=== PATIENT | female | born 1930 | race Hispanic/Latino ===

== ENCOUNTER 2017-07-05 22:19 | Observation (INO) | payer MEDICARE ==
[~2017-07-05] VITALS: Ht 149.9 cm; Wt 62.2 kg
[~2017-07-05 22:19] MED LIST: AMLO2.5T PO; ATOR10TA69 PO; CARV25TA PO; FURO20TA4 PO; HUM10VIA SQ; HUM10VIA6 SQ; IRON-6 PO; NITR100C PO; ONDA4TAB9 PO; VALS320T15 PO; WARF5TAB76 PO
[2017-07-05 22:44] LABS: EOSINOPHILS % (AUTO) 2.3 % (0.0-8.0); HEMATOCRIT 33.7 % (36-48); LYMPHOCYTES % (AUTO) 22.5 % (21.0-51.0); MEAN CORPUSCULAR HEMOGLOBIN 29.5 pg (27.0-33.0); MEAN CORPUSCULAR HGB CONC 34.7 g/dL (32.0-36.0); MONOCYTES % (AUTO) 7.3 % (3.0-13.0); NEUTROPHILS % (AUTO) 66.9 % (40.0-77.0); NUCLEATED RED BLOOD CELLS 0.1 % (0.0-0.19); PLATELET COUNT (AUTO) 160 K/uL (130-400); RED BLOOD CELL COUNT(AUTO) 3.96 MIL/uL (4.00-5.50); RED CELL DISTRIBUTION WIDTH 17.1 % (11.0-15.5); WHITE BLOOD COUNT (AUTO) 7.1 K/uL (4.8-10.8)
[2017-07-05 22:59] LABS: CREATININE 1.1 mg/dL (0.5-1.5); INR 2.08 (0.85-1.15); PARTIAL THROMBOPLASTIN TIME 33.7 SEC (26.3-35.5); POTASSIUM 5.4 mmol/L (3.5-5.1); PROTHROMBIN TIME 21.5 SEC (9.6-11.6)
[2017-07-05 23:14] LABS: APPEARANCE,URINE Cloudy (CLEAR); BILIRUBIN,URINE Negative (NEGATIVE); COLOR,URINE Yellow (YELLOW); GLUCOSE, URINE (UA) Negative (NEGATIVE); KETONES,URINE Negative (NEGATIVE); LEUKOCYTE ESTERASE ,URINE Small (NEGATIVE); NITRATE,URINE Negative (NEGATIVE); OCCULT BLOOD,URINE Negative (NEGATIVE); PROTEIN,URINE Negative (NEGATIVE)
[2017-07-05 23:21] LABS: ALBUMIN 3.7 g/dL (3.5-5.0); BILIRUBIN,TOTAL 0.4 mg/dL (0.2-1.0); CREATINE KINASE MB 1.5 ng/mL (0.5-3.6); TOTAL PROTEIN, SERUM 7.1 g/dL (6.0-8.3)
[2017-07-05 23:23] LABS: AMORPHOUS SEDIMENT,UR Rare /LPF (None Seen); BACTERIA,URINE Moderate /HPF (None Seen); MUCUS,URINE Few LPF (None Seen); RBC,URINE None Seen /HPF (0-1); SQUAMOUS EPITHELIAL CELL,UR Few /HPF (0-2)
[2017-07-05] MEDS ORDERED: NITROGLYCERIN 1GM/1 INCH PACKET TD ONE (23:38)
[2017-07-05] MEDS ORDERED: FUROSEMIDE 10 MG/ML 4ML VIAL ONE (23:38)
[2017-07-06] VITALS (7 sets, daily range): BP systolic 133–178; BP diastolic 48–67
[2017-07-06] MEDS ORDERED: LEVOFLOXACIN 500 MG/D5W 100 ML 100 ML ONE (00:17)
[2017-07-06] MEDS ORDERED: LIDOCAINE HCL-MPF 1% 2ML VIAL IJ PRN (02:15)
[2017-07-06] MEDS ORDERED: POTASSIUM CHLORIDE 10% ELIXIR 20 MEQ/15 ML UDCUP PO PRN (02:15)
[2017-07-06] MEDS ORDERED: POTASSIUM CHLORIDE 20MEQ/100ML 100 ML IV PRN (02:15)
[2017-07-06] MEDS ORDERED: POTASSIUM CHLORIDE 20 MEQ ERTAB PO PRN (02:15)
[2017-07-06] MEDS ORDERED: CIPR-279 PO (03:47)
[2017-07-06] MEDS ORDERED: VALS320T15 PO (04:03)
[2017-07-06] MEDS ORDERED: SERT50TA12 PO (04:03)
[2017-07-06] MEDS ORDERED: OMEP40CA37 PO (04:03)
[2017-07-06] MEDS ORDERED: WARF2.5T85 PO (04:03)
[2017-07-06] MEDS ORDERED: POTA10TA14 PO (04:03)
[2017-07-06] MEDS ORDERED: ERGO500014 PO (04:03)
[2017-07-06] MEDS ORDERED: WARF-57 PO (04:03)
[2017-07-06 05:39] LABS: CREATINE KINASE, TOTAL 61 U/L (21-232); MYOGLOBIN 72 ng/mL (10-92); TROPONIN I < 0.04 ng/mL (0.00-0.06)
[2017-07-06] MEDS: NITROGLYCERIN 1GM/1 INCH PACKET TD SCH ×3 (06:19→22:42)
[2017-07-06] MEDS ORDERED: ENOXAPARIN SODIUM 30 MG/0.3 ML SQ SCH (09:00)
[2017-07-06] MEDS ORDERED: HYDRALAZINE HCL 20 MG/ML VIAL IV PRN (10:30)
[2017-07-06] MEDS ORDERED: AZTREONAM 1 GM in SODIUM CHLORIDE 0.9% 50 ML IV SCH (10:30)
[2017-07-06] MEDS: AZTREONAM 1 GM VIAL IVP SCH ×2 (12:03→22:42)
[2017-07-06] MEDS: FUROSEMIDE 10 MG/ML 2ML VIAL IVP SCH ×2 (12:04→21:14)
[2017-07-06] MEDS: FAMOTIDINE 20MG TAB 20 MG TAB PO SCH (12:04)
[2017-07-06] MEDS: ASPIRIN 81MG TAB.CHEW PO SCH (12:04)
[2017-07-06] MEDS ORDERED: GLUCAGON 1MG KIT 1 MG ML IM PRN (12:15)
[2017-07-06] MEDS ORDERED: DEXTROSE 50%-WATER 50 ML DISP.SYRIN IV PRN (12:15)
[2017-07-06] MEDS: INSULIN HUMULIN R 100 UNIT/ML 3ML SQ SCH ×2 (16:30→21:21)
[2017-07-06] MEDS ORDERED: WARFARIN SODIUM 5 MG TAB PO SCH (17:00)
[2017-07-06] MEDS ORDERED: ATORVASTATIN CALCIUM 10 MG TABLET PO SCH (21:00)
[2017-07-07 04:25] LABS: HEMATOCRIT 35.7 % (36-48); MEAN CORPUSCULAR HGB CONC 34.6 g/dL (32.0-36.0); MEAN CORPUSCULAR VOLUME 83.8 fL (79-99); NUCLEATED RED BLOOD CELLS 0.1 % (0.0-0.19); PLATELET COUNT (AUTO) 146 K/uL (130-400); RED BLOOD CELL COUNT(AUTO) 4.26 MIL/uL (4.00-5.50); RED CELL DISTRIBUTION WIDTH 16.7 % (11.0-15.5); WHITE BLOOD COUNT (AUTO) 6.1 K/uL (4.8-10.8)
[2017-07-07 04:44] LABS: CREATININE 1.4 mg/dL (0.5-1.5); POTASSIUM 3.4 mmol/L (3.5-5.1)
[2017-07-07 05:02] VITALS: BP 125/62
[2017-07-07] MEDS: NITROGLYCERIN 1GM/1 INCH PACKET TD SCH ×2 (06:10→14:22)
[2017-07-07] MEDS: INSULIN HUMULIN R 100 UNIT/ML 3ML SQ SCH ×2 (06:54→14:35)
[2017-07-07] MEDS ORDERED: INSULIN HUMULIN 70/30 100 UNIT/ML 3ML SQ SCH (07:30)
[2017-07-07 08:24] VITALS: BP 137/54
[2017-07-07] MEDS ORDERED: SERTRALINE HCL 50 MG TABLET PO SCH (09:00)
[2017-07-07] MEDS ORDERED: AMLODIPINE BESYLATE 2.5 MG TAB PO SCH (09:00)
[2017-07-07] MEDS ORDERED: CARVEDILOL 25 MG TABLET PO SCH (09:00)
[2017-07-07] MEDS ORDERED: FERRALET PO SCH (09:00)
[2017-07-07 11:58] VITALS: BP 139/90
[2017-07-07] MEDS: FAMOTIDINE 20MG TAB 20 MG TAB PO SCH (14:22)
[2017-07-07] MEDS: FUROSEMIDE 10 MG/ML 2ML VIAL IVP SCH (14:22)
[2017-07-07] MEDS: ASPIRIN 81MG TAB.CHEW PO SCH (14:23)
[2017-07-07] MEDS: AZTREONAM 1 GM VIAL IVP SCH (14:25)
[2017-07-07 15:51] VITALS: BP 134/54
[2017-07-08] MEDS ORDERED: LOSARTAN 100 MG TABLET PO SCH (09:00)
[2017-07-13] MEDS ORDERED: ERGOCALCIFEROL (VITAMIN D2) 50,000 UNIT CAPSULE PO SCH (09:00)
== END 2017-07-07 18:00 | disposition home or self-care (01) ==
LOC: EDH 22:19 → EDHIP 23:49 → 3CH 07-06 01:17
PROVIDERS: ADMIT Internal Medicine; ATTEND Internal Medicine
DX: I11.0 Hypertensive heart disease with heart failure (principal); I50.23 Acute on chronic systolic (congestive) heart failure; N39.0 Urinary tract infection, site not specified; I25.10 Atherosclerotic heart disease of native coronary artery without angina pectoris; I48.2 Chronic atrial fibrillation; I42.9 Cardiomyopathy, unspecified; E11.9 Type 2 diabetes mellitus without complications; E78.5 Hyperlipidemia, unspecified; Z87.440 Personal history of urinary (tract) infections; Z95.1 Presence of aortocoronary bypass graft; Z79.01 Long term (current) use of anticoagulants
CPT/HCPCS: 36415 ×3; 71045 ×2; 80048; 80053; 81001; 82550 ×2; 82553 ×2; 82948 ×6; 83874; 83880; 84484 ×2; 85025; 85027; 85610; 85730; 87088; 87186; 93005; 96372 ×2; 96374; 96375; 96376 ×2; 99291; A4218 ×3; A4510; G0378 ×42; J1815 ×2; J1940 ×4; J1956; J3490 ×4

== ENCOUNTER 2017-09-24 22:31 | Emergency (ER) | payer MEDICARE ==
[~2017-09-24 22:31] MED LIST changes: +ERGO500014 PO; -HUM10VIA6 SQ; +OMEP40CA37 PO; -ONDA4TAB9 PO; +POTA10TA14 PO; +SERT50TA12 PO; -VALS320T15 PO; +VALS320T16 PO; +WARF-57 PO; +WARF2.5T85 PO; -WARF5TAB76 PO
[2017-09-24 23:34] LABS: APPEARANCE,URINE Clear (CLEAR); BILIRUBIN,URINE Negative (NEGATIVE); COLOR,URINE Yellow (YELLOW); GLUCOSE, URINE (UA) Negative (NEGATIVE); KETONES,URINE Negative (NEGATIVE); LEUKOCYTE ESTERASE ,URINE Small (NEGATIVE); NITRATE,URINE Positive (NEGATIVE); OCCULT BLOOD,URINE Negative (NEGATIVE); PH,URINE 5.5 (5.0-8.0); PROTEIN,URINE Negative (NEGATIVE)
[2017-09-24 23:41] LABS: BACTERIA,URINE Many /HPF (None Seen); RBC,URINE None Seen /HPF (0-1); SQUAMOUS EPITHELIAL CELL,UR Rare /HPF (0-2)
[2017-09-24 23:58] LABS: BASOPHILS % (AUTO) 1.1 % (0.0-5.0); EOSINOPHILS % (AUTO) 1.7 % (0.0-8.0); HEMATOCRIT 33.3 % (36-48); LYMPHOCYTES % (AUTO) 17.7 % (21.0-51.0); MEAN CORPUSCULAR HEMOGLOBIN 28.9 pg (27.0-33.0); MEAN CORPUSCULAR HGB CONC 33.8 g/dL (32.0-36.0); MEAN CORPUSCULAR VOLUME 85.4 fL (79-99); MONOCYTES % (AUTO) 5.3 % (3.0-13.0); NEUTROPHILS % (AUTO) 74.2 % (40.0-77.0); PLATELET COUNT (AUTO) 163 K/uL (130-400); RED CELL DISTRIBUTION WIDTH 18.1 % (11.0-15.5); WHITE BLOOD COUNT (AUTO) 7.8 K/uL (4.8-10.8)
[2017-09-25 00:10] LABS: CREATININE 1.3 mg/dL (0.5-1.5); INR 1.88 (0.85-1.15); PROTHROMBIN TIME 19.5 SEC (9.6-11.6)
[2017-09-25 00:15] LABS: ALBUMIN 3.8 g/dL (3.5-5.0); BILIRUBIN,TOTAL 0.4 mg/dL (0.2-1.0); TOTAL PROTEIN, SERUM 6.7 g/dL (6.0-8.3)
[2017-09-25] MEDS ORDERED: ACETAMINOPHEN 325 MG TAB ONE (00:42)
== END 2017-09-25 00:48 | disposition home or self-care (01) ==
LOC: EDH 22:31
DX: S00.83XA Contusion of other part of head, initial encounter (principal); S00.03XA Contusion of scalp, initial encounter; I11.0 Hypertensive heart disease with heart failure; I50.9 Heart failure, unspecified; I25.810 Atherosclerosis of coronary artery bypass graft(s) without angina pectoris; E78.00 Pure hypercholesterolemia, unspecified; E11.9 Type 2 diabetes mellitus without complications; I48.91 Unspecified atrial fibrillation; Z95.1 Presence of aortocoronary bypass graft; Z88.0 Allergy status to penicillin; W18.39XA Other fall on same level, initial encounter; Y93.01 Activity, walking, marching and hiking; Y92.89 Other specified places as the place of occurrence of the external cause; Y99.8 Other external cause status
CPT/HCPCS: 36415; 70450; 71045; 72125; 80053; 81001; 82550; 84484; 85025; 85610; 85730; 93005; 94761

== ENCOUNTER → 2018-06-19 | Outpatient (CLI) | payer MEDICARE ==
[~2018-06-19] MED LIST changes: -AMLO2.5T PO; +AMLO2.5T4 PO
== END | disposition home or self-care (01) ==
LOC: SHCH 08:57
PROVIDERS: ATTEND Internal Medicine Cardiovascular Disease
DX: I65.23 Occlusion and stenosis of bilateral carotid arteries (principal)
CPT/HCPCS: 93880

== ENCOUNTER 2018-08-17 16:47 | Emergency (ER) | payer MEDICARE ==
[2018-08-17 17:06] LABS: APPEARANCE,URINE Clear (CLEAR); BILIRUBIN,URINE Negative (NEGATIVE); COLOR,URINE Yellow (YELLOW); GLUCOSE, URINE (UA) Negative (NEGATIVE); KETONES,URINE Negative (NEGATIVE); LEUKOCYTE ESTERASE ,URINE Small (NEGATIVE); NITRATE,URINE Negative (NEGATIVE); OCCULT BLOOD,URINE Negative (NEGATIVE); PROTEIN,URINE Negative (NEGATIVE)
[2018-08-17 17:34] LABS: BACTERIA,URINE Few /HPF (None Seen); MUCUS,URINE Moderate LPF (None Seen); RBC,URINE None Seen /HPF (0-1); WBC,URINE 0-1 /HPF (0-1)
[2018-08-17 17:57] LABS: BASOPHILS % (AUTO) 1.5 % (0.0-5.0); EOSINOPHILS % (AUTO) 1.9 % (0.0-8.0); HEMATOCRIT 35.5 % (36-48); LYMPHOCYTES % (AUTO) 18.1 % (21.0-51.0); MEAN CORPUSCULAR HGB CONC 33.6 g/dL (32.0-36.0); MEAN CORPUSCULAR VOLUME 86.2 fL (79-99); MONOCYTES % (AUTO) 6.5 % (3.0-13.0); PLATELET COUNT (AUTO) 154 K/uL (130-400); RED BLOOD CELL COUNT(AUTO) 4.12 MIL/uL (4.00-5.50); RED CELL DISTRIBUTION WIDTH 17.3 % (11.0-15.5); WHITE BLOOD COUNT (AUTO) 6.6 K/uL (4.8-10.8)
[2018-08-17 18:33] LABS: CREATININE 1.3 mg/dL (0.5-1.5); POTASSIUM 3.9 mmol/L (3.5-5.1)
[2018-08-17 18:39] LABS: ALBUMIN 4.2 g/dL (3.5-5.0); BILIRUBIN,TOTAL 0.5 mg/dL (0.2-1.0); TOTAL PROTEIN, SERUM 7.6 g/dL (6.0-8.3)
== END 2018-08-17 19:10 | disposition home or self-care (01) ==
LOC: EDH 16:47
DX: N39.0 Urinary tract infection, site not specified (principal); I48.91 Unspecified atrial fibrillation; I25.810 Atherosclerosis of coronary artery bypass graft(s) without angina pectoris; I11.0 Hypertensive heart disease with heart failure; I50.9 Heart failure, unspecified; E11.9 Type 2 diabetes mellitus without complications; E78.00 Pure hypercholesterolemia, unspecified; Z88.0 Allergy status to penicillin
CPT/HCPCS: 36415; 74176; 80053; 81001; 82150; 83690; 84484; 85025; 93005

== ENCOUNTER 2019-01-20 16:24 | Emergency (ER) | payer MEDICARE ==
[~2019-01-20 16:24] MED LIST changes: -FURO20TA4 PO; -NITR100C PO; +OMEP40CA13 PO; -OMEP40CA37 PO; -WARF2.5T85 PO
[2019-01-20 17:02] LABS: EOSINOPHILS % (AUTO) 1.2 % (0.0-8.0); HEMATOCRIT 30.1 % (36-48); MEAN CORPUSCULAR HGB CONC 33.9 g/dL (32.0-36.0); MEAN CORPUSCULAR VOLUME 85.4 fL (79-99); NEUTROPHILS % (AUTO) 72.8 % (40.0-77.0); PLATELET COUNT (AUTO) 163 K/uL (130-400); RED BLOOD CELL COUNT(AUTO) 3.53 MIL/uL (4.00-5.50); RED CELL DISTRIBUTION WIDTH 17.4 % (11.0-15.5)
[2019-01-20 17:11] LABS: CREATININE 1.6 mg/dL (0.5-1.5); POTASSIUM 4.1 mmol/L (3.5-5.1)
[2019-01-20 17:13] LABS: INR 2.24 (0.85-1.15); PARTIAL THROMBOPLASTIN TIME 30.6 SEC (26.3-35.5); PROTHROMBIN TIME 22.8 SEC (9.6-11.6)
[2019-01-20 17:16] LABS: ALBUMIN 3.6 g/dL (3.5-5.0); BILIRUBIN,TOTAL 0.2 mg/dL (0.2-1.0); TOTAL PROTEIN, SERUM 6.6 g/dL (6.0-8.3)
[2019-01-20] MEDS ORDERED: ACETAMINOPHEN 325 MG TAB ONE (17:17)
[2019-01-20] MEDS ORDERED: TETANUS/DIPHTHERIA TOXOID [ADULT] 0.5 ML VIAL IM ONE (17:18)
[2019-01-20 17:25] LABS: B-TYPE NATRIURETIC PEPTIDE 304 pg/mL (0-100)
[2019-01-20 19:58] LABS: APPEARANCE,URINE Clear (CLEAR); BILIRUBIN,URINE Negative (NEGATIVE); COLOR,URINE Yellow (YELLOW); GLUCOSE, URINE (UA) Negative (NEGATIVE); KETONES,URINE Negative (NEGATIVE); LEUKOCYTE ESTERASE ,URINE Trace (NEGATIVE); NITRATE,URINE Negative (NEGATIVE); OCCULT BLOOD,URINE Negative (NEGATIVE); PROTEIN,URINE Negative (NEGATIVE); UROBILINOGEN,URINE 0.2 mg/dL (0.2-1.0)
[2019-01-20 20:10] LABS: BACTERIA,URINE Moderate /HPF (None Seen); MUCUS,URINE None Seen LPF (None Seen); RBC,URINE 0-1 /HPF (0-1); SQUAMOUS EPITHELIAL CELL,UR 0-2 /HPF (0-2)
[2019-01-23] MEDS ORDERED: FURO40TA5 PO (12:26)
[2019-01-23] MEDS ORDERED: INSU100I35 SQ (12:26)
== END 2019-01-20 22:35 | disposition home or self-care (01) ==
LOC: EDH 16:24
DX: S80.12XA Contusion of left lower leg, initial encounter (principal); S60.222A Contusion of left hand, initial encounter; S40.811A Abrasion of right upper arm, initial encounter; R53.1 Weakness; R26.9 Unspecified abnormalities of gait and mobility; I48.91 Unspecified atrial fibrillation; I25.10 Atherosclerotic heart disease of native coronary artery without angina pectoris; Z88.0 Allergy status to penicillin; E11.9 Type 2 diabetes mellitus without complications; I11.0 Hypertensive heart disease with heart failure; I50.9 Heart failure, unspecified; Z79.899 Other long term (current) drug therapy; Z95.1 Presence of aortocoronary bypass graft; Z95.0 Presence of cardiac pacemaker; Z87.891 Personal history of nicotine dependence; W01.0XXA Fall on same level from slipping, tripping and stumbling without subsequent striking against object, initial encounter; Y93.89 Activity, other specified; Y92.89 Other specified places as the place of occurrence of the external cause; Y99.8 Other external cause status
CPT/HCPCS: 36415; 70450; 71045; 73060; 73130; 73590; 80053; 81001; 82550; 83880; 84484; 85025; 85610; 85730; 87077; 87088; 87186; 90471; 90714; 93005

== ENCOUNTER 2019-01-28 05:54 | Day surgery (SDC) | payer MEDICARE ==
[2019-01-23 11:39] VITALS: BP 109/54
[2019-01-23 11:56] LABS: BASOPHILS % (AUTO) 0.9 % (0.0-5.0); EOSINOPHILS % (AUTO) 1.8 % (0.0-8.0); HEMATOCRIT 29.1 % (36-48); LYMPHOCYTES % (AUTO) 17.4 % (21.0-51.0); MEAN CORPUSCULAR HEMOGLOBIN 29.1 pg (27.0-33.0); MEAN CORPUSCULAR VOLUME 85.8 fL (79-99); MONOCYTES % (AUTO) 6.1 % (3.0-13.0); NEUTROPHILS % (AUTO) 73.8 % (40.0-77.0); PLATELET COUNT (AUTO) 145 K/uL (130-400); RED BLOOD CELL COUNT(AUTO) 3.39 MIL/uL (4.00-5.50); RED CELL DISTRIBUTION WIDTH 17.8 % (11.0-15.5); WHITE BLOOD COUNT (AUTO) 5.5 K/uL (4.8-10.8)
[2019-01-23 11:59] LABS: CREATININE 1.5 mg/dL (0.5-1.5); POTASSIUM 4.3 mmol/L (3.5-5.1)
[2019-01-23 12:02] LABS: APPEARANCE,URINE Cloudy (CLEAR); BILIRUBIN,URINE Negative (NEGATIVE); COLOR,URINE Yellow (YELLOW); GLUCOSE, URINE (UA) Negative (NEGATIVE); KETONES,URINE Negative (NEGATIVE); LEUKOCYTE ESTERASE ,URINE Small (NEGATIVE); NITRATE,URINE Negative (NEGATIVE); OCCULT BLOOD,URINE Small (NEGATIVE); PH,URINE 5.5 (5.0-8.0); PROTEIN,URINE Negative (NEGATIVE)
[2019-01-23 12:08] LABS: INR 2.62 (0.85-1.15); PARTIAL THROMBOPLASTIN TIME 35.2 SEC (26.3-35.5); PROTHROMBIN TIME 26.5 SEC (9.6-11.6)
[2019-01-23 12:22] LABS: BACTERIA,URINE Moderate /HPF (None Seen); RBC,URINE 0-1 /HPF (0-1); SQUAMOUS EPITHELIAL CELL,UR Rare /HPF (0-2)
--- NOTE | 2019-01-27 16:30 | NUR ---
RE; ABNORMAL LABS INFORMED LILIANA BENAVIDEZ REGARDING H/H (9.9/29.1), NO NEW ORDERS RECEIVED. INFORMED HIM ABOUT BUN 46/CREAT 1.5 , PT/INR 26.5/2.62, AND INFORMED HIM OF ABNORMAL URINALYSIS. PER PRAMOD, REPEAT CBC/PT/INR IN AM AND URINE CULTURE.
[2019-01-28] VITALS (15 sets, daily range): BP systolic 122–173; BP diastolic 35–61
[~2019-01-28] VITALS: Ht 144.8 cm; Wt 59.9 kg
[~2019-01-28 05:54] MED LIST changes: +ACETAMINOPHEN 325 MG TAB PO PRN; +FURO40TA5 PO; -HUM10VIA SQ; +INSU100I35 SQ; +SODIUM CHLORIDE 0.9% 500ML 500 ML IV SCH
--- NOTE | 2019-01-28 06:15 | NUR ---
PATIENT ARRIVED PATIENT ARRIVED TO WOOL WASHING MACHINE OPERATOR AND BROUGHT IN VIA WHEELCHAIR. PATIENT ACCOMPANIED BY DAUGHTER, OLVIN. PATIENT AAOX3, RESPIRATIONS UNLABORED, VITAL SIGNS STABLE. PROCEDURE CONFIRMED/VERIFIED WITH PATIENT. HOSPITAL ROUTINE EXPLAINED TO PATIENT/FAMILY, BOTH VERBALIZED UNDERSTANDING. SIDERAILS UP X2, BED IN LOWEST POSITION, CALL [facility] IN REACH.
[2019-01-28 06:38] LABS: BASOPHILS % (AUTO) 0.5 % (0.0-5.0); EOSINOPHILS % (AUTO) 0.2 % (0.0-8.0); HEMATOCRIT 29.5 % (36-48); LYMPHOCYTES % (AUTO) 9.9 % (21.0-51.0); MEAN CORPUSCULAR HEMOGLOBIN 28.9 pg (27.0-33.0); MEAN CORPUSCULAR HGB CONC 33.5 g/dL (32.0-36.0); MEAN CORPUSCULAR VOLUME 86.4 fL (79-99); MONOCYTES % (AUTO) 5.1 % (3.0-13.0); NEUTROPHILS % (AUTO) 84.3 % (40.0-77.0); PLATELET COUNT (AUTO) 130 K/uL (130-400); RED BLOOD CELL COUNT(AUTO) 3.41 MIL/uL (4.00-5.50); RED CELL DISTRIBUTION WIDTH 17.1 % (11.0-15.5); WHITE BLOOD COUNT (AUTO) 13.1 K/uL (4.8-10.8)
[2019-01-28 06:48] LABS: INR 1.22 (0.85-1.15); PARTIAL THROMBOPLASTIN TIME 27.5 SEC (26.3-35.5); PROTHROMBIN TIME 12.7 SEC (9.6-11.6)
[2019-01-28] MEDS ORDERED: SODIUM CHLORIDE 0.9% 1000ML 1,000 ML IV ONE (07:33)
--- NOTE | 2019-01-28 08:20 | NUR ---
RE: ABNORMAL LABS INFORMED LILIANA MCKEE REGARDING ELEVATED WBC 13.1, HGB 9.9, HCT 29.5. PATIENT IS ASYMPTOMATIC, NO NEW ORDERS RECEIVED. INFORMED HIM OF PT 12.7, INR 1.22 AND PTT 27.5, OK TO PROCEED WITH LEFT HEART CATH TODAY AND NO NEW ORDERS RECEIVED.
--- NOTE | 2019-01-28 09:35 | NUR ---
PATIENT TRANSFERRED PATIENT TAKEN TO RESIDENTIAL APPLIANCE REPAIR TECHNICIAN VIA BED BY LEÓN JERONIMO. FAMILY MEMBERS INSTRUCTED TO WAIT IN ROOM IN ORDER TO SPEAK WITH DR SIN FOLLOWING PROCEDURE.
[2019-01-28] MEDS ORDERED: HEPARIN SODIUM 1000UNIT/ML 10ML VIAL ONE (09:42)
[2019-01-28] MEDS ORDERED: NITROGLYCERIN 5 MG/ML 10 ML VIAL IV ONE (09:42)
[2019-01-28] MEDS ORDERED: SODIUM BICARB 50MEQ 50ML VIAL ONE (09:42)
[2019-01-28] MEDS ORDERED: IOHEXOL-350 50ML VIAL IV ONE (09:42)
[2019-01-28] MEDS ORDERED: IOHEXOL 350 MG/ML 100ML INFUS..BTL IV ONE (09:42)
[2019-01-28] MEDS ORDERED: LIDOCAINE HCL 2% 20ML ONE (09:43)
[2019-01-28] MEDS ORDERED: LABETALOL HCL 5 MG/ML 20ML VIAL IV ONE (10:16)
[2019-01-28] MEDS ORDERED: SODIUM CHLORIDE 0.9% 1000ML 1,000 ML IV SCH (10:46)
[2019-01-28] MEDS ORDERED: DEXTROSE 50%-WATER 50 ML DISP.SYRIN IV PRN (11:00)
[2019-01-28] MEDS ORDERED: GLUCAGON 1MG KIT 1 MG ML IM PRN (11:00)
[2019-01-28] MEDS ORDERED: INSULIN HUMULIN R 100 UNIT/ML 3ML SQ SCH (11:30)
--- NOTE | 2019-01-28 13:35 | NUR ---
Pt discharged home, tolerating fluids/food well, ambulating well for baseline, voiding well. Pt denies any severe pain, nausea, or dizziness. Routine and emergency discharge instructions given in regards to right femoral cath site. Pt and family verbalize understanding. No further orders at this time.
== END 2019-01-28 15:35 | disposition home or self-care (01) ==
LOC: DAH 05:54
PROVIDERS: ATTEND Internal Medicine Cardiovascular Disease
DX: I25.118 Atherosclerotic heart disease of native coronary artery with other forms of angina pectoris (principal); R94.39 Abnormal result of other cardiovascular function study; I34.0 Nonrheumatic mitral (valve) insufficiency; I70.1 Atherosclerosis of renal artery; I12.9 Hypertensive chronic kidney disease with stage 1 through stage 4 chronic kidney disease, or unspecified chronic kidney disease; N18.3 Chronic kidney disease, stage 3 (moderate); I25.5 Ischemic cardiomyopathy; E11.22 Type 2 diabetes mellitus with diabetic chronic kidney disease; K21.9 Gastro-esophageal reflux disease without esophagitis; I48.91 Unspecified atrial fibrillation; E78.5 Hyperlipidemia, unspecified; Z88.0 Allergy status to penicillin; Z95.5 Presence of coronary angioplasty implant and graft; Z79.899 Other long term (current) drug therapy; Z79.01 Long term (current) use of anticoagulants; Z79.4 Long term (current) use of insulin; Z82.49 Family history of ischemic heart disease and other diseases of the circulatory system; Z83.3 Family history of diabetes mellitus
CPT/HCPCS: 36415 ×2; 71045; 75625; 80048; 81001; 82948 ×2; 85025 ×2; 85610 ×2; 85730 ×2; 87077; 87088; 87186; 93005; 93459; A4215; A4216; A4221; A4222; A4223 ×3; A4335; A4606; A4663; C1760; C1769; C1894; J1644; J1815; J3490 ×4; J7030; Q9965; Q9967 ×2; 36200; 75630

== ENCOUNTER → 2019-07-14 | Outpatient (CLI) | payer MEDICARE ==
[~2019-07-14] MED LIST changes: -ACETAMINOPHEN 325 MG TAB PO PRN; +ATOR10 PO; -ATOR10TA69 PO; -CARV25TA PO; +POTA-9 PO; -POTA10TA14 PO; -SODIUM CHLORIDE 0.9% 500ML 500 ML IV SCH; -WARF-57 PO
== END | disposition home or self-care (01) ==
LOC: SHCH 08:30
PROVIDERS: ATTEND Internal Medicine Cardiovascular Disease
DX: I08.3 Combined rheumatic disorders of mitral, aortic and tricuspid valves (principal); I50.22 Chronic systolic (congestive) heart failure
CPT/HCPCS: 93306; 93356

== ENCOUNTER → 2020-08-13 | Outpatient (CLI) | payer MEDICARE ==
[~2020-08-13] MED LIST changes: +SERT-439 PO; -SERT50TA12 PO
== END | disposition home or self-care (01) ==
LOC: SHCH 11:21
PROVIDERS: ATTEND Internal Medicine Cardiovascular Disease
DX: I25.5 Ischemic cardiomyopathy (principal); I50.1 Left ventricular failure, unspecified; I48.91 Unspecified atrial fibrillation; E78.5 Hyperlipidemia, unspecified; F17.210 Nicotine dependence, cigarettes, uncomplicated
CPT/HCPCS: 93306; 93356